=== PATIENT | male | born 1955 | race Caucasian/White ===

== ENCOUNTER → 2018-05-24 09:18 | Outpatient (CLI) | payer BC | END | disposition home or self-care (01) | LOC: D.CT 09:18 | DX: R41.3 Other amnesia (principal) ==

== ENCOUNTER → 2019-08-13 11:26 | Outpatient (CLI) | payer BC ==
--- NOTE | 2019-08-16 12:49 | ST ---
PATIENT:HORACE RADNLE MEDICAL RECORD: [id number] SEX: M LOCATION:[facility] ORDER #: ADMISSION DATE: 08/13/19 AGE OF PATIENT: 63 REFERRING PHYSICIAN: INTERPRETING PHYSICIAN: KIMBER HEARN MD DATE OF SERVICE: 08/10/2019 Nuclear Stress Test INDICATIONS: Angina, shortness of breath, hypertension. He was exercised under standard Ezio protocol for 5 minutes, terminated due to significant EKG changes and the angina with 28 mCi of sestamibi injected at peak stress, 10 mCi used previously for rest images. FINDINGS: Gated SPECT reveals a preserved ejection fraction of 52% with decreased thickening and brightening throughout the inferior segments. SPECT Imaging: Cardiolite was used as myocardial perfusion agent. There is a fixed perfusion defect inferiorly and apically compatible with previous inferoapical myocardial infarction; however, there is reversible ischemia anteriorly and septally, the degree of reversibility is moderate. The amount of myocardium involved is large between the defects. OVERALL IMPRESSION: This is a high-risk nuclear stress test, fixed perfusion defect inferiorly, reversible ischemia anteroseptally suggestive of multivessel coronary artery disease. TRANSINT:[id number] Voice Confirmation ID: [id number] DOCUMENT ID: [id number] KIMBER HEARN MD at 1249 CC: HORACE WILLIAMSON [id number] DICTATION DATE: 08/15/19 1541 OUTBOUND SALES AGENT: 08/16/19 0301 DEP CLI 08/13/19 [place] [id number] [place] [id number]
== END | disposition home or self-care (01) ==
LOC: D.HCCARDIO 11:26
PROVIDERS: ATTEND Internal Medicine Interventional Cardiology
DX: I20.9 Angina pectoris, unspecified (principal)

== ENCOUNTER → 2019-09-11 08:13 | Outpatient (CLI) | payer BC ==
--- NOTE | ~2019-09-11 | EC ---
PATIENT:HORACE RANDLE DATE OF SERVICE: 09/11/19 SEX: M MEDICAL RECORD: [id number] DATE OF : [birth year] LOCATION:[facility] AGE OF PATIENT: 63 ADMISSION DATE: 09/11/19 REFERRING PHYSICIAN: INTERPRETING PHYSICIAN: KIMBER APPLE MD ECHOCARDIOGRAM REPORT ECHO CHARGES 4 ECHO COMPLETE Date: 09/11/19 CLINICAL DIAGNOSIS: HEART MURMUR/AORTIC STENOSIS ECHOCARDIOGRAPHIC MEASUREMENTS (adult normal given) AC root (d.<3.7cm) 3.9 cm LV Septum d (<1.2 cm> 1.5 cm Valve Excursion 1.7 cm LV Septum (systole) 1.6 cm Left Atria (s.<4.0cm> 3.8 cm LVPW d(<1.2cm) 1.4 cm RV (d.<2.3cm) 3.8 cm LVPW (sytole) 1.6 cm LV diastole(<5.6CM) 5.3 cm MV E-F(>70mm/sec) cm LV systole 4.2 cm LVOT Diameter 1.6 cm MV exc.(>10mm) 1.8 cm Est.ejection fraction (50-75%) % DOPPLER: LVIT cm/sec A 97.0 cm/sec E 60.0 cm/sec LA cm/sec RVSP 32 mmHg LVOT 92 cm/sec AOP1/2T 600 m/s Asc. Ao 270 cm/sec RVOT 65 cm/sec RA cm/sec PA 102 cm/sec AV Gradient Peak 29.08mmHg AV Mean 17.12mmHg AV Area 1.3 cm MV Gradient Peak 3.87 mmHg MV Mean 1.23 mmHg MV Area cm COMMENTS: Paperhanger Pipe: 2 ANYA DILLARD Medical Lab Director: 1 Dr. Apple TAPE# PACS Pericardial Effusion N DATE OF SERVICE: ECHOCARDIOGRAM FINDINGS: 1. Left ventricular chamber size is within normal limits. Left ventricular systolic function is normal. Overall ejection fraction estimated at 60%. 2. Left atrium is within normal limits at 3.8 cm. Right atrium and right ventricular chamber sizes are mildly dilated. 3. Valvular structures: Aortic valve demonstrates [id number] calcific ECHOCARDIOGRAM REPORT [id number] HORACE RANDLE aortic stenosis, valve area calculates 1.3 cm-squared. There is gradient of 29 mm across the valve. The remaining valvular structures have normal structure and motion. 4. Doppler interrogation elsewise reveals trace mitral regurgitation, mild tricuspid regurgitation, no other valvular insufficiency or stenosis. Pulmonary systolic pressure is normal at 32 mmHg. 5. No evidence of pericardial effusion or left ventricular thrombus. TRANSINT:[id number] Voice Confirmation ID: [id number] DOCUMENT ID: [id number] KIMBER APPLE MD CC: [id number] DICTATION DATE: 09/12/19 1103 BILLING AUDITOR: 09/12/19 1306 DEP CLI 09/11/19 [place] [id number] [place] [id number]
[~2019-09-11 08:13] MED LIST: ATIVAN0.5 MG PO; BAYER CHEWABLE81 MG PO; DONEPEZIL HCL5 MG PO; HCTZ25 MG PO; HYTRIN10 MG PO; NORVASC10 MG PO; RANITIDINE HCL150 M1 PO; WELCHOL625 MG PO; XALATAN 0.0052.5 ML EACH EYE; ZYRTEC10 MG PO
[2019-09-18 08:40] VITALS: BMI 30.3
== END | disposition home or self-care (01) ==
LOC: D.HCCECHO 08:13
PROVIDERS: ATTEND Internal Medicine Interventional Cardiology
DX: I20.9 Angina pectoris, unspecified (principal)

== ENCOUNTER 2019-09-18 08:05 | Outpatient (CLI) | payer BC ==
[~2019-09-18] VITALS: Ht 175.3 cm; Wt 93.2 kg
--- NOTE | ~2019-09-18 | HEMODYNAMI ---
PATIENT:HORACE RANDLE MEDICAL RECORD: [id number] : 51 LOCATION:[facility] ADMISSION DATE: 09/18/19 Generatedon:09/18/201911:22 Patient name: HORACE RANDLE Patient #: [id number] SSN: [id number] : 1955 Date of study: 09/18/2019 Page: Of Hemodynamic Procedure Report Patient Data Patient Demographics Procedure consent was obtained First Name: HORACE Gender: Male Last Name: RAZIA : 1955 Middle Initial: W Age: 63 year(s) Patient #: [id number] Race: Unknown SSN: [id number] Additional ID: [id number] Contact details [address]: [address] [place] [address] State: [place] City: [place] Zip code: [address] Past Medical History Performed procedures and imaging results Date Procedure Procedure Results Comments Stress testing with Positive->High SPECT MPI risk Allergies Allergen Reaction Date Comments Reported Other allergy 09/18/2019 CRESTOR, VYTORIN Admission Admission Data Admission Date: 09/18/2019 Admission Time: 8:05 Arrival Date: 09/18/2019 Arrival Time: 0:00 Height (in.): 69 BSA: 2.09 (m2) Height (cm.): 175.26 BMI: 30.28 (kg/m2) Weight (lbs.): 205.03 Weight (kg.): 93 Lab Results Lab Result Date: 09/18/2019 Lab Result Time: 0:00 Biochemistry Name Units Result Min Max BUN mg/dl 12 --(-*--)-- 7 18 Creatinine mg/dl 1.1 --(--*-)-- 0.6 1.3 eGFR ml/min 70.18915 *-(----)-- 90 120 NONAFRICAN CBC Name Units Result Min Max Hematocrit % 45.2 --(-*--)-- 42 54 Hemoglobin g/dl 15.9 --(--*-)-- 13.5 17.5 Procedure Procedure Types Cath Procedure Diagnostic Procedure [facility] w/Coronaries Sedation Charges Moderate Sedation up to 30 minutes PCI Procedure Coronary Stent Coronary Stent Initial x2 Hemochron ACT Test Procedure Description Procedure Date Procedure Date: 09/18/2019 Procedure Start Time: 10:42 Procedure End Time: 11:21 Procedure Staff Name Function Ambrocio Apple MD Performing Physician Gauri Lerner RT Monitor Soraya Love RT Monitor Mary Mchugh RT Scrub Aftab Grider RN Nurse Procedure Data Cath Procedure Fluoroscopy Diagnostic fluoroscopy Total fluoroscopy Time: time: 13.6 min 13.6 min Diagnostic fluoroscopy Total fluoroscopy dose: dose: 1242 mGy 1242 mGy Contrast Material Contrast Material Type Amount (ml) Isovue 370 178 Entry Location Entry Primary Successful Side Size Upsize Upsize Entry Closure Kessler ccessful Closure Location (Fr) 1 (Fr) 2 (Fr) Remarks Device Remarks Radial Right 6 Fr artery Short Radial Mechanical artery Compression Estimated blood loss: 10 ml Diagnostic catheters Device Type Used For End Catheter Placement DIAGNOSTIC Middle Bass 110cm 5 Procedure Fr catheter ([id number]) Procedure Complications No complications Procedure Medications Medication Administration Route Dosage 0.9% NaCl I.V. 100 ml/hr Oxygen etCO2 Nasal cannula 2 l/min Heparin Flush Bag added to field 2 bags (1000units/500ml NS) Lidocaine 2% added to field 20 Radial Cocktail added to field 1 syringe (Verapamil 2mg/Nitro 400mcg/Heparin 1500units) Versed I.V. 2 mg Fentanyl I.V. 100 mcg Radial Cocktail I.A. 1 syringe (Verapamil 2mg/Nitro 400mcg/Heparin 1500units) Heparin Bolus I.V. 4000 units Integrilin (Bolus I.V. 8.5 ml 2mg/ml) Integrilin (Bolus wasted 1.5 ml 2mg/ml) Plavix P.O. 600 mg Hemodynamics Rest BSA: 2.09 (m2) HGB: 15.9 (g/dl) O2 Consumption: Estimated: 238.44 (ml/min) O2 Co nsumption indexed: Estimated:114.09 (ml/min/m) Heart Rate: 63 (bpm) Snapshots Pre Cath Intra NCS Post Cath Vital Signs Time Heart Resp SPO2 etCO2 NIBP (mmHg) Rhythm Pain Sedation Rate (ipm) (%) (mmHg) Status Level (bpm) 10:24:41 66 13 98 28.8 126/88(105) NSR 0 (11) 10(A) , No pain 10:28:53 64 10 92 31 122/76(95) NSR 0 (11) 10(A) , No pain 10:33:05 64 10 93 32.5 118/76(95) NSR 0 (11) 10(A) , No pain 10:37:13 62 11 94 40.1 115/81(91) NSR 0 (11) 10(A) , No pain 10:41:21 66 15 93 40.1 117/78(94) NSR 0 (11) 10(A) , No pain 10:45:31 73 14 94 36.3 109/76(91) NSR 0 (11) 10(A) , No pain 10:49:34 84 12 91 37.1 106/71(90) NSR 0 (11) 10(A) , No pain 10:53:40 77 12 93 39.3 111/75(91) NSR 0 (11) 10(A) , No pain 10:57:48 75 15 93 38.5 112/77(95) NSR 0 (11) 10(A) , No pain 11:01:56 78 10 94 45.3 107/72(90) NSR 0 (11) 9(A) , No pain 11:06:02 73 10 94 40.1 112/73(91) NSR 0 (11) 9(A) , No pain 11:10:12 71 14 94 39.3 111/69(90) NSR 0 (11) 9(A) , No pain 11:14:17 73 15 95 43.9 117/77(90) NSR 0 (11) 9(A) , No pain 11:18:25 75 11 96 37.1 115/77(99) NSR 0 (11) 10(A) , No pain Medications Time Medication Route Dose Verified Delivered Reason Not es Effectiveness by by 10:25:12 0.9% NaCl I.V. 100 Aftab Aftab Per physician ml/hr Cheo Grider RN RN 10:25:22 Oxygen etCO2 2 l/min Aftab Aftab for low 02 sats Nasal Cheo Grider cannula RN RN 10:25:33 Heparin Flush added 2 bags Aftab Aftab used for Bag to Cheo Grider procedure (1000units/500ml field RN RN NS) 10:25:43 Lidocaine 2% added 20ml Aftab Aftab for local to vial Loreryn Grider anesthetic field RN RN 10:25:55 Radial Cocktail added 1 Aftab Aftab used for (Verapamil to syringe Lorigan Lorigan procedure 2mg/Nitro field RN RN 400mcg/Heparin 1500units) 10:42:53 Versed I.V. 2 mg Aftab Aftab for sedation Cheo Grider RN RN 10:43:01 Fentanyl I.V. 100 mcg Aftab Aftab for sedation Cheo Grider RN RN 10:45:15 Radial Cocktail I.A. 1 Aftab Ambrocio for (Verapamil syringe Cheo Tauth MD vasodilation 2mg/Nitro RN 400mcg/Heparin 1500units) 10:54:41 Heparin Bolus I.V. 4000 Aftab Aftab for units Cheo Grider anticoagulation RN RN 10:54:58 Integrilin I.V. 8.5 ml Aftab Aftab for (Bolus 2mg/ml) Cheo Grider antiplatelet RN RN therapy 10:55:53 Integrilin wasted 1.5 ml Aftab Aftab to sharp's (Bolus 2mg/ml) Cheo Grider RN RN 11:18:01 Plavix P.O. 600 mg Aftab Aftab for Cheo Grider antiplatelet RN RN therapy Procedure Log Time Note 10:06:55 Informed consent obtained and on chart 10:07:18 Procedure Status Elective Heart Cath (OP). 10:07:19 Time tracking: Regular hours (M-F 7:00 - 5:00) 10:07:22 Plan of Care:Hemodynamics will remain stable., Cardiac rhythm will remain stable., Comfort level will be maintained., Respiratory function will remain adequate., Patient/ family verbilizes understanding of procedure., Procedure tolerated without complication., Recovers from procedure without complications.. 10:07:30 H&P Date Dictated: 09/13/2019 Within 30 days and on chart., H&P Addendum completed by physician on day of procedure. (MUST COMPLETE FOR ALL OUTPATIENTS). 10:07:44 Patient allergic to Other allergyCRESTOR, VYTORIN 10:08:37 Patient Weight : 205.03 lbs 10:08:41 Arrival Date: 09/18/2019 12:00:00 AM 10:09:43 Patient Height : 69 inches 10:09:54 Aftab Grider RN sent for patient. Start room use. 10:: Lab Result : BUN 12 mg/dl : Lab Result : eGFR NONAFRICAN 70.91376 ml/min : Lab Result : Creatinine 1.1 mg/dl : Lab Result : Hemoglobin 15.9 g/dl : Lab Result : Hematocrit 45.2 % 10:12:13 Stress Test: yes; abnormal MULTIVESSEL 10::51 Risk of Mortality: .1 10::52 Risk of blood transfusion: .1 10::54 Risk of MINOO: .2 10::43 Patient received from Pre/Post Procedure Room to CCL 1 Alert and oriented. Tansferred to table in Supine position. 10:14:44 Warm blankets applied, and josh hugger turned on for patient comfort. 10:14:44 Correct patient and procedure confirmed by team. 10:14:45 ECG and BP/O2 sat monitors applied to patient. 10:22:25 Pre-procedure instructions explained to patient. 10:22:26 Pre-op teaching completed and patient verbalized understanding. 10:22:28 Family in waiting room. 10:22:30 Patient NPO since Midnight. 10:22:32 Is the patient allergic to Iodine/contrast media? No. 10:22:34 Was the patient premedicated? Yes 10:22:35 Is patient on blood thinner?No 10:22:37 Patient diabetic? No. 10:22:39 If diabetic: On Metformin? N/A 10::43 ----Pre-sedation anethsthesia assessment.---- 10:22:47 Previous problem with sedation/anesthesia? No ? 10:22:49 Snore? Yes 10:22:51 Sleep apnea? No 10:22:52 Deviated septum? No 10:22:53 Opens mouth fully? Yes 10:22:54 Sticks out tongue? Yes 10:22:56 Airway obstruction? No ? 10:22:58 Dentures? No ? 10:23:03 Pre procedure: right dorsailis pedis pulse 2+ Normal; easily identifiable; not easily obliterated 10:23:05 Modified Russ's test Ulnar < 7 seconds 10:23:08 Patient pain scale 0/10 ?. 10:23:18 Right Radial & Right Groin area was prepped with chlora-prep and draped in sterile fashion 10:23:19 Alarms reviewed by R. N. 10:23:20 Sharps counted by scrub and verified by R.N. 10:23:33 IV patent on arrival in left antecubital with 0.9% NaCl at [facility]. 10:23:38 Vital chart was started 10:23:39 Full Disclosure recording started 10:24:04 Baseline sample Acquired. 10:24:44 Rhythm: sinus rhythm 10:25:12 0.9% NaCl 100 ml/hr I.V. was administered by Aftab Grider RN; Per physician; Verbal order read back and verified. 10:25:22 Oxygen 2 l/min etCO2 Nasal cannula was administered by Aftab Grider RN; for low 02 sats; Verbal order read back and verified. 10:25:33 Heparin Flush Bag (1000units/500ml NS) 2 bags added to field was administered by Aftab Grider RN; used for procedure; Verbal order read back and verified. 10:25:43 Lidocaine 2% 20ml vial added to field was administered by Aftab Grider RN; for local anesthetic; Verbal order read back and verified. 10:25:55 Radial Cocktail (Verapamil 2mg/Nitro 400mcg/Heparin 1500units) 1 syringe added to field was administered by Aftab Grider RN; used for procedure; Verbal order read back and verified. 10:30:27 Use device set Radial Dx or PCI 10:30:29 ACIST Syringe (34722) opened to sterile field. 10:30:29 Medline Cath Pack ([id number]) opened to sterile field. 10:30:31 Bag Decanter () opened to sterile field. 10:30:32 ACIST Hand Control (58549) opened to sterile field. 10:30:33 ACIST Manifold (02267) opened to sterile field. 10:30:33 Tegaderm 4 x 4 (9836W) opened to sterile field. 10:30:34 MBrace Wrist Support ([id number]) opened to sterile field. 10:30:38 EMERALD Guide Wire (433-644) opened to sterile field. 10:30:39 SHEATH 6FR RAIN (6023932) opened to sterile field. 10:38:17 --------ALL STOP TIME OUT------ 10:38:18 Final Timeout: patient, procedure, and site verified with staff and physician. All members of the team are in agreement. 10:38:20 Right Radial & Right Groin site verified by team. 10:38:24 Fire Safety Assessment: A--An alcohol-based skin anteseptic being used preoperatively., C--Open oxygen or nitrous oxide is being used., D--An ESU, laser, or fiber-optic light is being used. 10:38:30 Physical assessment completed. ASA score P 2 - A patient with mild systemic disease as per Ambrocio Apple MD. 10:38:34 2) 60-89 Mildly reduced kidney function, and other findings (as for stage 1) point to kidney disease. 10:38:50 Maximum allowable contrast dose (3.7 X eGFR X 0.75)197 ml. 10:38:55 Sedation plan: IV Moderate Sedation Medication:Versed, Fentanyl 10:41:56 Procedure started. 10:42:09 Zero performed for pressure channel P1 10:42:32 Local anesthetic to right radial artery with Lidocaine 2% by Ambrocio Apple MD.INITIAL ACCESS ONLY 10:42:53 Versed 2 mg I.V. was administered by Aftab Grider RN; for sedation; Verbal order read back and verified. 10:43:01 Fentanyl 100 mcg I.V. was administered by Aftab Grider RN; for sedation; Verbal order read back and verified. 10:43:18 A 6 Fr Short sheath was inserted into the Right Radial artery 10:43:37 A DIAGNOSTIC Middle Bass 110cm 5 Fr catheter ([id number]) was advanced over the wire and used for Procedure. 10:45:15 Radial Cocktail (Verapamil 2mg/Nitro 400mcg/Heparin 1500units) 1 syringe I.A. was administered by Ambrocio Apple MD; for vasodilation; Verbal order read back and verified. 10:45:17 LV gram done using HWANG 10:45:20 Injector settings: Ml/sec: 5, Volume: 15, 10:46:29 EF : 55 % 10:46:36 LCA angiography performed. 10:47:29 RCA angiography performed. 10:48:00 ACCDominant side:Right 10:48:01 Catheter exchanged over wire. 10:48:31 GUIDE 6FR XBLAD 3.5 catheter ([id number]) opened to sterile field. 10:49:29 6 Fr XBLAD 3.5 guide catheter was inserted over the wire 10:50:09 Catheter exchanged over wire. 10:50:22 GUIDE 6FR XBLAD 4.0 catheter ([id number]) opened to sterile field. 10:51:13 INFLATOR Merit BasixCompak (WB8287) opened to sterile field. 10:51:14 CHOICE PT Extra Support 182cm wire ([id number]) opened to sterile field. 10:51:22 GUIDE 6FR AR 2.0 SH catheter ([id number]) opened to sterile field. 10:51:32 6 Fr AR 2 SH guide catheter was inserted over the wire 10:52:07 Pre PCI Site: [place] mRCA has 95% stenosis. 10:52:46 CHOICE ES 182 wire advanced. 10:53:19 Wire advanced across lesion. 10:54:41 Heparin Bolus 4000 units I.V. was administered by Aftab Grider RN; for anticoagulation; Verbal order read back and verified. 10:54:58 Integrilin (Bolus 2mg/ml) 8.5 ml I.V. was administered by Aftab Grider RN; for antiplatelet therapy; Verbal order read back and verified. 10:55:32 The ALEXANDRA RX 3.0 x 30 stent ([id number]) was advanced then removed because of failure to cross lesion 10:55:53 Integrilin (Bolus 2mg/ml) 1.5 ml wasted was administered by Aftab Grider RN; to sharp's; Verbal order read back and verified. 10:56:33 Inflate balloon Inflation number: 1 A EUPHORA 3.0 x 20 Balloon ([id number]) was prepped and advanced across the Mid RCA , then inflated to 13 SHANDRA for 0:00 (min:sec) . 10:56:51 Inflation number: 2 The EUPHORA 3.0 x 20 Balloon ([id number]) was reinflated across the Mid RCA , to 17 SHANDRA for 0:00 (min:sec) . 10:57:18 Balloon removed over the wire. 10:58:47 Place stent Inflation Number: 3 A ALEXANDRA RX 3.0 x 30 stent ([id number]) was prepped and advanced across the Mid RCA . The stent was deployed at 23 SHANDRA for 0:00 (min:sec) . 10:59:03 Balloon removed over the wire. 11:00:56 Inflate balloon Inflation number: 4 A NC EUPHORA 3.5 x 12 balloon ([id number]) was prepped and advanced across the Mid RCA , then inflated to 17 SHANDRA for 0:00 (min:sec) . 11:01:14 Balloon removed over the wire. 11:01:18 Wire removed. 11:01:19 Guide catheter removed. 11:01:48 6 Fr XBLAD 4 guide catheter was inserted over the wire 11:02:38 Pre PCI Site: [place] pLAD has 99% stenosis. 11:02:44 Pre PCI Site: [place] LMCA has 99% stenosis. 11:05:42 CHOICE ES 182 wire advanced. 11:07:36 The ALEXANDRA RX 3.5 x 22 stent ([id number]) was advanced then removed because of failure to cross lesion 11:08:29 Inflation number: 1 The EUPHORA 3.0 x 20 Balloon ([id number]) was reinflated across the Prox LAD , to 17 SHANDRA for 0:00 (min:sec) . 11:08:48 Balloon removed over the wire. 11:10:40 Place stent Inflation Number: 2 A ALEXANDRA RX 3.5 x 22 stent ([id number]) was prepped and advanced across the Prox LAD . The stent was deployed at 21 SHANDRA for 0:00 (min:sec) . 11:11:06 Stent catheter was removed intact over wire. 11:14:09 Place stent Inflation Number: 1 A ALEXANDRA RX 4.0 x 12 stent ([id number]) was prepped and advanced across the LMCA . The stent was deployed at 21 SHANDRA for 0:00 (min:sec) . 11:14:33 Stent catheter was removed intact over wire. 11:14:34 Wire removed. 11:14:35 Guide catheter removed. 11:14:52 ZEPHYR REGULAR TR BAND (414287) opened to sterile field. 11:15:05 A sheath was inserted into the Radial artery 11:15:05 Sheath removed intact; hemostasis achieved with Mechanical Compression to the Radial artery. 11:15:07 Procedure ended.(Physican Out) 11:15:19 Fluoroscopy time 13.60 minutes. 11:15:24 Fluoroscopy dose: 1242 mGy 11:15:24 Flurop Dose total: 1242 11:15:33 Dose Area Product 41370 mGy/cm. 11:15:38 Contrast amount:Isovue 370 178ml. 11:15:41 Maximum allowable dose exceeded? No. 11:15:43 Sharps counted by scrub and verified by R.N. 11:15:46 [place] band inflated with 10cc of air. 11:15:49 Post Procedure Pulses reassessed and unchanged 11:15:53 Post procedure: right dorsailis pedis pulse 2+ Normal; easily identifiable; not easily obliterated. 11:15:58 Post-procedure physical assessment completed. ASA score P 2 - A patient with mild systemic disease as per Ambrocio Apple MD. 11:16:01 Post procedure rhythm: unchanged. 11:16:04 Estimated blood loss: 10 ml 11:16:06 Post procedure instruction explained to patient.Patient verbalizes understanding. 11:16:07 Patient needs reinforcement of post procedure teaching. 11:17:23 Procedure type changed to Cath procedure, Diagnostic procedure, C, [facility] w/Coronaries, Sedation Charges, Moderate Sedation up to 30 minutes, PCI procedure, Coronary Stent, Coronary Stent Initial x2, Hemochron ACT Test 11:17:25 Procedure and supply charges have been captured, reviewed, submitted and are correct. 11:18:01 Plavix 600 mg P.O. was administered by Aftab Grider RN; for antiplatelet therapy; Verbal order read back and verified. 11:18:22 ACT drawn and resulted at 309 seconds. (normal therapeutic range 180-240 seconds). 11:18:34 Procedure Complication : No complications 11:18:39 [facility] Findings: MVD- PCI performed (see procedure note) 11:18:43 Operative report dictated upon procedure completion. 11:18:44 See physician's report for complete and final results. 11:18:46 Report given to Pre/Post Procedure Room. 11:18:51 Patient transfered to Pre/Post Procedure Room with Stretcher. 11:21:20 Vital chart was stopped 11:21:22 Procedure ended. 11:21:22 Full Disclosure recording stopped 11:21:30 ACC-PCI Only Patient was given prescriptions, or instructed by Ambrocio Apple MD to start/continue the following medications upon discharge: Plavix 11:21:34 End room use (Document Last) Intervention Summary Intervention Notes Time ActionType Lesion and Equipment Used Action# Pressure Duration Attributes 10:55:32 Discard ALEXANDRA RX 3.0 x Stent 30 stent ([id number]) 10:56:33 Inflate Mid RCA EUPHORA 3.0 x 1 13 00:00 balloon 20 Balloon ([id number]) 10:56:51 Reinflate Mid RCA EUPHORA 3.0 x 2 17 00:00 balloon 20 Balloon ([id number]) 10:58:47 Place stent Mid RCA ALEXANDRA RX 3.0 x 3 23 00:00 30 stent ([id number]) 11:00:56 Inflate Mid RCA NC EUPHORA 3.5 4 17 00:00 balloon x 12 balloon ([id number]) 11:07:36 Discard ALEXANDRA RX 3.5 x Stent 22 stent ([id number]) 11:08:29 Reinflate Prox LAD EUPHORA 3.0 x 1 17 00:00 balloon 20 Balloon ([id number]) 11:10:40 Place stent Prox LAD ALEXANDRA RX 3.5 x 2 21 00:00 22 stent ([id number]) 11:14:09 Place stent LMCA ALEXANDRA RX 4.0 x 1 21 00:00 12 stent ([id number]) Device Usage Item Name Manufacture Quantity Catalog Number Hospital Part Current M inimal Lot# / Charge Number Stock Stock Serial# Code ACIST Syringe Acist 1 04748 446762 031306 021162 2 0 (52968) Medical Systems Inc Medline Cath Medline 1 [id number] 662126 38994 121651 5 Pack ([id number]) Bag Decanter Microtek 1 2001S 564685 17797 732886 5 () Medical Inc. ACIST Hand Acist 1 54749 374265 031657 946955 5 Control Medical (71159) Systems Inc ACIST Manifold Acist 1 76145 839138 170487 707236 5 (38090) Medical Systems Inc Tegaderm 4 x 4 3M 1 1626W 050545 741035 383488 5 (1626W) MBrace Wrist Advanced 1 140-0250-00 889066 88134 518721 5 Support Vascular ([id number]) Dynamics EMERALD Guide Cardinal 1 502-455 226223 056490 980612 5 Wire (502-455) Health SHEATH 6FR Cardinal 1 8990475 949270 9537459 083722 5 RAIN (9082997) Health DIAGNOSTIC Terumo 1 40-5180 382641 827777 674510 5 Middle Bass 110cm 5 Fr catheter (555334) GUIDE 6FR Cardinal 1 [id number] 314395 849894 547893 1 0 XBLAD 3.5 Health catheter (32255543) GUIDE 6FR Cardinal 1 [id number] 779456 370838 901475 3 XBLAD 4.0 Health catheter (55735685) INFLATOR Merit Merit 1 IT5677 975785 600998 690102 1 5 Fieldglass (ZR2651) CHOICE PT [place] 1 [id number] 458231 370739 056732 5 Extra Support Scientific 182cm wire (6336912E7) GUIDE 6FR AR Medtronic 1 [id number] 149333 19441 618204 1 2.0 SH catheter ([id number]) ALEXANDRA RX 3.0 x Medtronic 1 [id number] 445797 5178715 420246 5 [id number] 30 stent ([id number]) EUPHORA 3.0 x Medtronic 1 [id number] 594111 507160 389020 5 [id number] 20 Balloon ([id number]) NC EUPHORA 3.5 Medtronic 1 [id number] 075283 045422 486118 1 [id number] x 12 balloon ([id number]) ALEXANDRA RX 3.5 x Medtronic 1 [id number] 287626 1523260 632450 5 [id number] 22 stent ([id number]) ALEXANDRA RX 4.0 x Medtronic 1 [id number] 715058 0050796 426241 5 [id number] 12 stent ([id number]) ZEPHYR REGULAR Cardinal 1 394391 241135 9742005 922770 5 TR BAND REPP (122052) Signature Audit [place] Stage Time Signature Unsigned Intra-Procedure 09/18/2019 Gauri Lerner 11:22:11 AM RT(R) Intra-Procedure 09/18/2019 Aftab 11:22:31 AM Cheo DUGAN Intra-Procedure 09/18/2019 Ambrocio Apple 11:22:45 AM [address] [place] [address]
[2019-09-18] MEDS ORDERED: NORVASC10 MG PO (08:20)
[2019-09-18] MEDS ORDERED: HYTRIN10 MG PO (08:21)
[2019-09-18] MEDS ORDERED: WELCHOL625 MG PO (08:21)
[2019-09-18] MEDS ORDERED: RANITIDINE HCL150 M1 PO (08:22)
[2019-09-18] MEDS ORDERED: HCTZ25 MG PO (08:22)
[2019-09-18] MEDS ORDERED: BAYER CHEWABLE81 MG PO (08:23)
[2019-09-18] MEDS ORDERED: ATIVAN0.5 MG PO (08:23)
[2019-09-18] MEDS ORDERED: DONEPEZIL HCL5 MG PO (08:23)
[2019-09-18] MEDS ORDERED: XALATAN 0.0052.5 ML EACH EYE (08:23)
[2019-09-18] MEDS ORDERED: ZYRTEC10 MG PO (08:23)
[2019-09-18 08:40] VITALS: BP 135/80; Ht 175.3 cm; Wt 93.2 kg
[2019-09-18 08:55] LABS: ANION GAP 10.5 mmol/L (8-16); CALCIUM 8.9 mg/dL (8.5-10.1); CARBON DIOXIDE 28.8 mmol/L (21.0-32.0); CHOL - HDL RATIO 4.6 ratio (2.3-4.9); CREATININE - SERUM 1.1 mg/dL (0.6-1.3); LDL-HDL RATIO 3.2 ratio (1.5-3.5); POTASSIUM - SERUM 3.3 mmol/L (3.5-5.1)
[2019-09-18 08:57] LABS: BASOPHILS 0.3 % (0-2); EOSINOPHILS 5.5 % (0-7); HEMATOCRIT 45.2 % (42.0-54.0); HEMOGLOBIN 15.9 g/dL (13.5-17.5); IMMATURE GRANULOCYTES 0.2 % (0-5); LYMPHOCYTES 31.3 % (15-50); MCH 29.4 pg (26.0-34.0); MCHC 35.2 g/dL (31.0-37.0); MCV 83.5 fL (80.0-100.0); MEAN PLATELET VOLUME 8.7 fL (7.4-10.4); MONOCYTES 7.9 % (2-11); NEUTROPHILS 54.8 % (40-80); PLATELET COUNT 228 10x3/uL (130-400); RBC 5.41 10x6/uL (4.20-6.10); RDW 13.3 % (11.5-14.5); WBC 6.3 10x3/uL (4.8-10.8)
--- NOTE | 2019-09-18 11:15 | NUR ---
RIGHT WRIST Z BAND IN PLACE. NO BLEEDING/HEMATOMA NOTED. CALL LIGHT WITHIN REACH. VSS. RESTING COMFORTABLY AT THIS TIME.
--- NOTE | 2019-09-18 11:30 | NUR ---
PT ARRIVED BY STRETCHER. PLACED ON MONITOR. ASSESSMENT COMPLETED. VSS. FAMILY AT BEDSIDE.
[2019-09-18] MEDS ORDERED: PLAVIX75 MG PO (11:41)
--- NOTE | 2019-09-18 12:03 | NUR ---
DR. HEARN ROUNDED AND SPOKE WITH PT AND PT'S FAMILY.
--- NOTE | 2019-09-18 12:30 | NUR ---
RIGHT WRIST Z BAND IN PLACE. NO BLEEDING/HEMATOMA NOTED. CALL LIGHT WITHIN REACH. FAMILY AT BEDSIDE.
--- NOTE | 2019-09-18 13:00 | NUR ---
RIGHT WRIST Z BAND IN PLACE. NO BLEEDING/HEMATOMA NOTED. CALL LIGHT WITHIN REACH. PT AWAKE AND ALERT. SET UP WITH SANDWICH TRAY AND DRINK. VSS AT THIS TIME.
--- NOTE | 2019-09-18 13:30 | NUR ---
RIGHT WRIST Z BAND IN PLACE. NO BLEEDING/HEMATOMA NOTED. CALL LIGHT WITHIN REACH. VSS AT THIS TIME. PT DENIES NAUSEA/PAIN. FAMILY AT BEDSIDE.
--- NOTE | 2019-09-18 14:10 | NUR ---
4cc OF AIR REMOVED FROM Z BAND. NO BLEEDING/HEMATOMA NOTED. CALL LIGHT WITHIN REACH. FAMILY AT BEDSIDE. VSS AT THIS TIME.
--- NOTE | 2019-09-18 14:25 | NUR ---
4cc OF AIR REMOVED FROM Z BAND. TOLERATED WELL. NO BLEEDING/HEMATOMA NOTED. VSS. CALL LIGHT WITHIN REACH. NO NEEDS AT THIS TIME.
--- NOTE | 2019-09-18 14:35 | NUR ---
2cc OF AIR REMOVED FROM Z BAND. PIV D/C'D WITH CATH TIP INTACT. TOLERATED WELL. PT INSTRUCTED TO GET UP AND DRESSED AT THIS TIME. PT'S AT BEDSIDE TO ASSIST.
--- NOTE | 2019-09-18 14:45 | NUR ---
RIGHT WRIST Z BAND REMOVED. NO BLEEDING/HEMATOMA NOTED. RIGHT WRIST BRACE IN PLACE.
--- NOTE | 2019-09-18 14:50 | NUR ---
DISCUSSED DISCHARGE INSTRUCTIONS WITH PT AND PT'S . THEY VOICED UNDERSTANDING. PT AMBULATED TO RESTROOM. VOIDED WITHOUT DIFFICULTY.
--- NOTE | 2019-09-18 15:00 | NUR ---
RIGHT WRIST DRESSING C/D/I. NO S/S OF HEMATOMA NOTED. RIGHT WRIST BRACE IN PLACE. PT TAKEN OUT TO VEHICLE. NO S/S OF DISTRESS NOTED. ALL BELONGINGS AND PAPERWORK IN HAND. PRESCRIPTION CALLED INTO [facility] PER PT REQUEST.
--- NOTE | 2019-09-20 10:40 | OP ---
PATIENT NAME: HORACE RANDLE MEDICAL RECORD: [id number] :51 LOCATION:D.CAT ADMISSION DATE: SURGEON: KIMBER HEARN MD DATE OF OPERATION: 09/18/2019 DATE OF SERVICE: 09/18/2019 PROCEDURES: 1. PTCA stent left main. 2. PTCA stent LAD. 3. PTCA stent RCA. 4. Left heart catheterization. 5. Selective coronary angiography. 6. Left ventriculogram. INDICATION: Unstable angina and coronary artery disease. PROCEDURE IN DETAIL: After informed consent was obtained and after a detailed description of risks, benefits as well as alternative therapies, the patient elected to proceed with angiogram and angioplasty. The right radial area was prepped and draped in normal sterile fashion. Right radial artery was cannulated via modified Seldinger technique with placement of 6-Macedonian sheath. All catheters exchanged through this sheath. FINDINGS: The left ventriculogram was performed in standard 30-degree HWANG view, reveals good cardiac wall motion, ejection fraction estimated at 55%. SELECTIVE CORONARY ANGIOGRAPHY: 1. Left main is 95% stenosed. 2. The left anterior descending is 99% stenosed. 3. Right coronary is 95% stenosed. 4. The left circumflex has mild irregularities, but no flow-limiting stenosis. PTCA STENT OF THE RCA: The stent used was a 3.5 x 30 mm [place]. Result was 0% residual stenosis. PTCA STENT OF THE LAD: The stent used was a 3.5 x 22 mm [place]. Result was 0% residual stenosis. PTCA STENT OF LEFT MAIN: Stent used was a 4.0 x 12 mm [place]. Result was 0% residual stenosis. OVERALL IMPRESSION: Successful percutaneous transluminal coronary angioplasty stent of the left main left anterior descending and right coronary artery, all going from 95+ percent initial stenosis to 0% residual. 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
== END 2019-09-18 15:00 | disposition home or self-care (01) ==
LOC: D.CATH 08:05
PROVIDERS: ATTEND Internal Medicine Interventional Cardiology
DX: I25.110 Atherosclerotic heart disease of native coronary artery with unstable angina pectoris (principal); I10 Essential (primary) hypertension; R07.9 Chest pain, unspecified; R06.00 Dyspnea, unspecified

== ENCOUNTER → 2020-12-16 18:18 | Outpatient (CLI) | payer BC ==
[2019-09-18 08:40] VITALS: BMI 30.3
[~2020-12-16 18:18] MED LIST changes: +PLAVIX75 MG PO
[2020-12-16 22:19] LABS: CHOL - HDL RATIO 2.6 ratio (2.3-4.9); LDL-HDL RATIO 1.4 ratio (1.5-3.5)
== END | disposition home or self-care (01) ==
LOC: D.LABREF 18:18
PROVIDERS: ATTEND Nurse Practitioner
DX: E78.5 Hyperlipidemia, unspecified (principal)